=== PATIENT | male | born 1995 | race Caucasian/White ===

== ENCOUNTER 2019-03-14 20:20 | Emergency (ER) | payer BC ==
[2019-03-14] MEDS ORDERED: Lidocaine 1% 50 ML MDV INJECT ONE (21:23)
[2019-03-14] MEDS ORDERED: Diphtheria,Pertussis(Acell),Tetanus Vaccine 0.5 ML Syringe IM ONE (21:24)
--- NOTE | 2019-03-14 21:48 | EDM.PDOC ---
ED HPI GENERAL MEDICAL PROBLEM - General Chief Complaint: Laceration Stated Complaint: LACERATION TO SIDE Time Seen by Provider: 03/14/19 21:33 Source of Information: Reports: Patient History Limitations: Reports: No Limitations - History of Present Illness INITIAL COMMENTS - FREE TEXT/NARRATIVE: 23-year-old male presents for evaluation and treatment of a laceration to the left flank. Injury occurred prior to arrival in the ER. 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 Bleeding controlled upon arrival to the ER. Unsure of last tetanus. Left Abdomen Pain Score (Numeric/FACES): 2 - Related Data Allergies Allergy/AdvReac Type Severity Reaction Status Date / Time No Known Allergies Allergy Verified 03/14/19 20:30 Home Meds: Home Meds . [No Known Home Meds] 03/14/19 [History] Past Medical History Cardiovascular History: Reports: Other (See Below) Other Cardiovascular History: irregular heart beat - Past Surgical History HEENT Surgical History: Reports: Adenoidectomy, Tonsillectomy Social & Family History - Tobacco Use Smoking Status *Q: Current Every Day Smoker Years of Tobacco use: 12 Packs/Tins Daily: 1.5 - Caffeine Use Caffeine Use: Reports: Coffee - Recreational Drug Use Recreational Drug Use: No ED ROS GENERAL - Review of Systems Review Of Systems: ROS reveals no pertinent complaints other than HPI. ED EXAM, SKIN/RASH Exam: See Below Exam Limited By: No Limitations General Appearance: Alert, WD/WN, No Apparent Distress Throat/Mouth: Normal Inspection Respiratory/Chest: No Respiratory Distress Neurological: Alert, Oriented, Normal Cognition Psychiatric: Normal Affect, Normal Mood Skin: Warm, Dry, Normal Color, Wound/Incision (5cm x 1cm open wound to the left flank) Location, Skin: Abdomen (left lateral) Characteristics: Linear ED SKIN PROCEDURES - Laceration/Wound Repair Left Lateral Abdomen Lac/Wound length In cm: 5 Appearance: Subcutaneous, Linear, Clean Distal NVT: Neuro & Vascular Intact, No Tendon Injury Anesthetic Type: Local Local Anesthesia - Lidocaine (Xylocaine): 1% Plain Local Anesthetic Volume: 3cc Skin Prep: Saline, Sterile Drape Exploration/Debridement/Repair: Wound Explored Closed with: Sutures Suture Size: 4-0 # of Sutures: 8 Suture Type: Nylon, Interrupted, Simple Sterile Dressing Applied: Nurse Tetanus Status Addressed: Yes Complications: No Course - Vital Signs Last Recorded V/S: Last Vital Signs Temp 98.5 F 03/14/19 20:28 Pulse 93 03/14/19 20:28 Resp 16 03/14/19 20:28 BP 127/87 03/14/19 20:28 Pulse Ox 98 03/14/19 20:28 - Orders/Labs/Meds Orders: Active Orders 24 hr Category Date Time Status Vaccines to be Administered [RC] PER UNIT ROUTINE Care 03/14/19 21:24 Ordered Meds: Medications Discontinued Medications Generic Name Dose Route Start Last Admin Trade Name Freyoni PRN Reason Stop Dose Admin Diphtheria/Tetanus/Acell Pertussis 0.5 ml 03/14/19 21:24 03/14/19 21:36 Adacel IM 03/14/19 21:25 0.5 ml .ONCE ONE Administration Lidocaine HCl 50 ml 03/14/19 21:23 03/14/19 21:36 Xylocaine 1% INJECT 03/14/19 21:24 50 ml ONETIME ONE Administration - Re-Assessments/Exams Free Text/Narrative Re-Assessment/Exam: 03/14/19 22:40 8 sutures placed to the left side. Patient tolerated well. No complications. His tetanus was updated. Discharge instructions as documented. Departure - Departure Time of Disposition: 22:40 Disposition: Home, Self-Care 01 Condition: Good Clinical Impression: Laceration - Discharge Information *PRESCRIPTION DRUG MONITORING PROGRAM REVIEWED*: No *COPY OF PRESCRIPTION DRUG MONITORING REPORT IN PATIENT MISHA: No Referrals: PCP,None [Primary Care Provider] - Rupinder Casillas PA-C [[employer] [facility]] - Forms: ED Department Discharge Additional Instructions: wash the wound with gentle soap and water twice a day.e may plan antibacterial such as Neosporin or bacitracin to the wound. Recommend keeping the wound covered. He may leave open to air in situations where there is not clothing rubbing on it or when may not become dirty. Recommended no heavy lifting over 25 pounds next week. Recommend no strenuous activity that would cause increased movement and may cause the sutures to break . Take ckoe-pty-waostas Tylenol or Motrin as needed for pain. Have the sutures removed in 10 days. the [facility] located on the east side of the [facility] is open 8 AM to 5 PM Monday through Monday and will remove the sutures for free. Call [phone] to schedule with a provider there. There are open 8 AM to 5 PM Monday to Monday. monitor the wound for signs of infection such as increased swelling, pus or redness. Presents to clinic or the ER should these develop. Please return to the ER for symptoms change or worsen. - My Orders Last 24 Hours: My Active Orders 03/14/19 21:24 Vaccines to be Administered [RC] PER UNIT ROUTINE - Assessment/Plan Last 24 Hours: My Active Orders 03/14/19 21:24 Vaccines to be Administered [RC] PER UNIT ROUTINE
== END 2019-03-14 22:50 | disposition home or self-care (01) ==
LOC: JD.ED 20:20
DX: S31.119A Laceration without foreign body of abdominal wall, unspecified quadrant without penetration into peritoneal cavity, initial encounter (principal); F17.210 Nicotine dependence, cigarettes, uncomplicated; Z23 Encounter for immunization; Z98.890 Other specified postprocedural states; W26.8XXA Contact with other sharp object(s), not elsewhere classified, initial encounter
CPT/HCPCS: 12002; 90471; 90700; 99282; J2001

== ENCOUNTER 2021-02-11 07:53 | Emergency (ER) | payer SELFPAY ==
--- NOTE | 2021-02-11 08:10 | EDM.PDOC ---
ED HPI GENERAL MEDICAL PROBLEM - General Chief Complaint: Upper Extremity Injury/Pain Stated Complaint: RT WRIST SWOLLEN Time Seen by Provider: 02/11/21 08:09 Source of Information: Reports: Patient History Limitations: Reports: No Limitations - History of Present Illness INITIAL COMMENTS - FREE TEXT/NARRATIVE: 25-year-old male attends the ED this morning complaining of pain in his right thumb and dorsal wrist. He was tearing off a roof 2 days ago but not did not feel the work was necessarily more than what he is used to. He denies falling or injuring the wrist. Exam it hurts to move his thumb in certain directions and the wrist in abduction abduction and flexion. No previous fracture to the wrist. No other complaints. 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 (Motrin yesterday.) Right Wrist Pain Score (Numeric/FACES): 5 - Related Data Allergies Allergy/AdvReac Type Severity Reaction Status Date / Time No Known Allergies Allergy Verified 02/11/21 08:09 Home Meds: Home Meds Diclofenac Sodium [Voltaren] 75 mg PO BIDMEALS #20 tab.cr 02/11/21 [Rx] Past Medical History Cardiovascular History: Reports: Other (See Below) Other Cardiovascular History: irregular heart beat - Past Surgical History HEENT Surgical History: Reports: Adenoidectomy, Tonsillectomy Social & Family History - Caffeine Use Caffeine Use: Reports: Coffee - Living Situation & Occupation Living situation: Reports: Single Occupation: Employed Review of Systems - Review of Systems Review Of Systems: See Below Constitutional: Reports: No Symptoms Eyes: Reports: No Symptoms Ears: Reports: No Symptoms Nose: Reports: No Symptoms Mouth/Throat: Reports: No Symptoms Respiratory: Reports: No Symptoms Cardiovascular: Reports: No Symptoms GI/Abdominal: Reports: No Symptoms Genitourinary: Reports: No Symptoms Musculoskeletal: Reports: Back Pain Skin: Reports: No Symptoms Neurological: Reports: No Symptoms Psychiatric: Reports: No Symptoms ED EXAM, GENERAL - Physical Exam Exam: See Below Exam Limited By: No Limitations General Appearance: Alert, WD/WN, No Apparent Distress, Other (Vital signs show temperature of 36.1 degrees. Heart rate 57 and sinus. Respiratory to 16 BP 139/89 with pulse oximetry of 97% room air.) Eye Exam: Bilateral Eye: Normal Inspection, PERRL Extremities: Other (Examination was essentially limited to his right wrist. He has full range of motion although painful abduction abduction and flexion. Pain follows the distribution of the extensor tendons of the thumb compared with de Quervain's tenosynovitis. He is already wearing a splint that will minimize mov) Neurological: Alert, Oriented, CN II-XII Intact, Normal Cognition Psychiatric: Normal Affect, Normal Mood Skin Exam: Warm, Dry, Intact, Normal Color Course - Vital Signs Last Recorded V/S: Last Vital Signs Temp 36.6 C 02/11/21 08:33 Pulse 60 02/11/21 08:33 Resp 16 02/11/21 08:33 BP 127/78 02/11/21 08:33 Pulse Ox 98 02/11/21 08:33 - Radiology Interpretation Free Text/Narrative:: 25-year-old male presents to the ED with a Muller veins tenosynovitis of the right wrist. He is allergic to steroids presumably prednisone which he took and once in the past for hives. He has developed significant chest pain from them. He is already wearing a volar splint that minimizes movement of his thumb. He is advised to continue wearing this until better. I placed him on Voltaren 75 mg twice daily for the next 10 days. If this fails to improve his pain he may require steroid injection by a small dose of Depo-Medrol which he is unlikely to react to. Advised follow-up with Dr. Navarrete in 12 to 14 days if needed. Departure - Departure Time of Disposition: 08:19 Disposition: Home, Self-Care 01 Condition: Fair Clinical Impression: De Quervain's disease (tenosynovitis) - Discharge Information *PRESCRIPTION DRUG MONITORING PROGRAM REVIEWED*: Not Applicable *COPY OF PRESCRIPTION DRUG MONITORING REPORT IN PATIENT MISHA: Not Applicable Prescriptions: Diclofenac Sodium [Voltaren] 75 mg PO BIDMEALS #20 tab.cr Instructions: De Quervain's Tenosynovitis Referrals: PCP,None [Primary Care Provider] - Forms: ED Department Discharge Additional Instructions: Evaluation of right wrist pain carried out through the ED today feels substantial inflammation in the distribution of the tendons that move your thumb and wrist in all directions. No evidence of fracture identified. You have something called de Quervain's tenosynovitis involving the tendon sheath surrounding the tendons that help move the thumb primarily . The tendons overlying the right or thumb side of your dorsal wrist. Suggest wearing the splint that you have in place already. Use Voltaren 75 mg twice daily for the next 10 days to relieve pain and inflammation. If this is not markedly improved in 10 to 12 days time he may benefit from an injection in this area. Advise follow-up with --orthopedic surgeon who works on second floor on the side of the hospital. You could phone and make an appointment at [phone] to arrange an appointment. Sepsis Event Note (ED) - Evaluation Sepsis Screening Result: No Definite Risk - Focused Exam Vital Signs: Vital Signs Temp Pulse Resp BP Pulse Ox 02/11/21 08:33 36.6 C 60 16 127/78 98 02/11/21 08:05 36.1 C 57 L 16 139/89 97
== END 2021-02-11 08:35 | disposition home or self-care (01) ==
LOC: JD.ED 07:53
DX: M65.4 Radial styloid tenosynovitis [de Quervain] (principal)
CPT/HCPCS: 99283

== ENCOUNTER 2022-02-20 14:14 | Emergency (ER) | payer SELFPAY ==
[2022-02-20] MEDS ORDERED: Sodium Chloride 0.9% 10 ML Syringe FLUSH PRN (15:16)
[2022-02-20] MEDS ORDERED: LORazepam 1 MG Tab PO ONE (15:20)
== END 2022-02-20 17:30 | disposition home or self-care (01) ==
LOC: JD.ED 14:14
DX: R07.89 Other chest pain (principal); F41.9 Anxiety disorder, unspecified; Z87.891 Personal history of nicotine dependence
CPT/HCPCS: 36415; 71046; 80053; 84484; 85025; 85379; 93005; 99285; A9270; J3490

== ENCOUNTER 2022-04-16 21:44 | Emergency (ER) | payer SELFPAY ==
[2022-04-17] MEDS ORDERED: Ketorolac 15 MG/ML SDV IM ONE (00:41)
== END 2022-04-17 02:35 | disposition home or self-care (01) ==
LOC: JD.ED 21:44
DX: S02.2XXA Fracture of nasal bones, initial encounter for closed fracture (principal); R68.84 Jaw pain; Z88.0 Allergy status to penicillin; Z88.5 Allergy status to narcotic agent; Z87.891 Personal history of nicotine dependence; Y04.0XXA Assault by unarmed brawl or fight, initial encounter
CPT/HCPCS: 70450; 70486; 71046; 96372; 99284; J1885; 99283

== ENCOUNTER 2025-04-02 07:43 | Emergency (ER) | payer SELFPAY ==
[2025-04-02] MEDS ORDERED: Sodium Chloride 0.9% 10 ML Syringe FLUSH PRN (07:49)
[2025-04-02 08:29] LABS: BARBITURATE SCREEN,URINE NEGATIVE (CUTOFF=200); BENZODIAZEPINES SCREEN,URINE NEGATIVE (CUTOFF=150); BUPRENORPHINE SCREEN,URINE NEGATIVE (CUTOFF=10); METHADONE SCREEN, URINE NEGATIVE (CUT0FF=200); METHAMPHETAMINES SCREEN, URINE NEGATIVE (CUTOFF=500); OXYCODONE SCREEN,URINE NEGATIVE (CUT0FF=100); THC SCREEN,URINE 20 NG/ML PRESUMPTIVE POSITIVE (CUTOFF=50)
[2025-04-02 08:31] LABS: AMPHETAMINES SCREEN, URINE NEGATIVE (CUTOFF=500)
== END 2025-04-02 08:12 | disposition left against medical advice (07) ==
LOC: JD.ED 07:43
DX: R07.89 Other chest pain (principal); Z79.899 Other long term (current) drug therapy; Z88.0 Allergy status to penicillin; Z88.8 Allergy status to other drugs, medicaments and biological substances
CPT/HCPCS: 71045; 71045-26; 80306; 93005; 93010; 99283; 99285

== ENCOUNTER 2025-04-02 08:20 | Emergency (ER) | payer SELFPAY ==
[2025-04-02 08:52] LABS: BASOPHILS PERCENT AUTO 0.2 % (0.0-1.0); EOSINOPHILS PERCENT AUTO 0.2 % (0.0-6.0); HEMATOCRIT 46.9 % (42.0-52.0); IMMATURE GRAN ABSOLUTE AUTO 0.02 K/mm3 (0.00-0.05); IMMATURE GRAN PERCENT AUTO 0.2 % (0.0-0.4); LYMPHOCYTES ABSOLUTE AUTO 1.6 K/mm3 (1.0-4.8); LYMPHOCYTES PERCENT AUTO 18.5 % (24.0-44.0); MEAN CORPUSCULAR HEMOGLOBIN 27.2 pg (28.0-32.0); MEAN CORPUSCULAR HGB CONC 34.1 g/dl (32.0-36.0); MEAN CORPUSCULAR VOLUME 79.6 fl (83.0-99.0); MEAN PLATELET VOLUME 9.3 fl (9.4-12.4); MONOCYTES ABSOLUTE AUTO 0.8 K/mm3 (0.0-0.8); MONOCYTES PERCENT AUTO 9.4 % (0.0-8.0); NEUTROPHILS ABSOLUTE AUTO 6.1 K/mm3 (1.8-7.7); NEUTROPHILS PERCENT AUTO 71.5 % (41.0-71.0); PLATELET COUNT,PLT 221 K/mm3 (150-400); RED BLOOD CELL COUNT 5.89 M/mm3 (4.52-5.90); WHITE BLOOD CELL COUNT,WBC 8.58 K/mm3 (3.9-11.3)
[2025-04-02 09:16] LABS: A/G RATIO 1.4 (1-2); ALBUMIN 4.3 g/dl (3.4-5.0); ANION GAP 15.6 (5-15); BILIRUBIN TOTAL 1.2 mg/dL (0.2-1.0); BUN/CREATININE RATIO 8.3 (14-18); CALCIUM 9.1 mg/dL (8.5-10.1); CREATININE 1.2 mg/dL (0.7-1.3); EST CRCL DRUG DOSING (CG) 88.31 mL/min; POTASSIUM,K 3.6 mEq/L (3.5-5.1); PROTEIN TOTAL,TP 7.4 g/dl (6.4-8.2)
[2025-04-02] MEDS: Potassium Chloride 20 MEQ Tab.ER PO ONE (09:58)
== END 2025-04-02 10:10 | disposition home or self-care (01) ==
LOC: JD.ED 08:20
DX: R07.89 Other chest pain (principal); F17.200 Nicotine dependence, unspecified, uncomplicated; Z88.0 Allergy status to penicillin; Z88.8 Allergy status to other drugs, medicaments and biological substances; Z79.899 Other long term (current) drug therapy
CPT/HCPCS: 36415; 80053; 84484; 85025; 99283; 99285; A9270-GY

== ENCOUNTER 2025-04-03 22:12 | Emergency (ER) | payer SELFPAY | END 2025-04-03 23:00 | disposition left against medical advice (07) | LOC: JD.ED 22:12 | DX: Z53.21 Procedure and treatment not carried out due to patient leaving prior to being seen by health care provider (principal) ==

== ENCOUNTER 2025-04-25 12:04 | Emergency (ER) | payer OTHER ==
[2025-04-25 12:39] LABS: BASOPHILS ABSOLUTE AUTO 0.0 K/mm3 (0.0-0.2); BASOPHILS PERCENT AUTO 0.3 % (0.0-1.0); EOSINOPHILS ABSOLUTE AUTO 0.0 K/mm3 (0.0-0.4); EOSINOPHILS PERCENT AUTO 0.6 % (0.0-6.0); IMMATURE GRAN ABSOLUTE AUTO 0.02 K/mm3 (0.00-0.05); IMMATURE GRAN PERCENT AUTO 0.3 % (0.0-0.4); LYMPHOCYTES ABSOLUTE AUTO 1.4 K/mm3 (1.0-4.8); LYMPHOCYTES PERCENT AUTO 23.0 % (24.0-44.0); MEAN PLATELET VOLUME 9.8 fl (9.4-12.4); MONOCYTES ABSOLUTE AUTO 0.4 K/mm3 (0.0-0.8); MONOCYTES PERCENT AUTO 6.6 % (0.0-8.0); NEUTROPHILS ABSOLUTE AUTO 4.3 K/mm3 (1.8-7.7); NEUTROPHILS PERCENT AUTO 69.2 % (41.0-71.0); NRBC ABSOLUTE 0.00 (0.00-0.02); NRBC PERCENT 0.0 % (0.0-0.2); PLATELET COUNT,PLT 208 K/mm3 (150-400); RED BLOOD CELL COUNT 5.53 M/mm3 (4.52-5.90); WHITE BLOOD CELL COUNT,WBC 6.18 K/mm3 (3.9-11.3)
[2025-04-25 13:06] LABS: A/G RATIO 1.3 (1-2); ALANINE AMINOTRANSFERASE,ALT 34.0 U/L (16-63); ASPARTATE AMNIOTRANSFERASE,AST 29.0 U/L (15-37); BILIRUBIN TOTAL 0.9 mg/dL (0.2-1.0); BLOOD UREA NITROGEN,BUN 15.0 mg/dL (7-18); CARBON DIOXIDE,CO2 26.0 mEq/L (21-32); CHLORIDE,CL 108.0 mEq/L (98-107); CREATINE KINASE,CK 170.0 U/L (39-308); CREATININE 0.9 mg/dL (0.7-1.3); EST CRCL DRUG DOSING (CG) 107.32 mL/min; ESTIMATED GFR 117.0 mL/min (>60); GLUCOSE RANDOM 109.0 mg/dL (70-99); PROTEIN TOTAL,TP 6.3 g/dl (6.4-8.2); SODIUM,NA 140.0 mEq/L (136-145); TROPONIN I HIGH SENSITIVITY 7.0 pg/mL (<=76)
[2025-04-25 13:22] LABS: POTASSIUM,K 4.2 mEq/L (3.5-5.1)
== END 2025-04-25 14:00 | disposition home or self-care (01) ==
LOC: JD.ED 12:04
DX: R07.89 Other chest pain (principal); M62.838 Other muscle spasm; F43.9 Reaction to severe stress, unspecified; Z88.0 Allergy status to penicillin; Z88.8 Allergy status to other drugs, medicaments and biological substances
CPT/HCPCS: 36415; 71045; 80053; 82550; 83690; 83735; 84484; 85025; 93005; 96360; 99285; J7030

== ENCOUNTER 2025-05-11 08:56 | Emergency (ER) | payer OTHER ==
[2025-05-11] MEDS: Ondansetron 4 MG/2 ML SDV IVPUSH ONE (09:30)
[2025-05-11 09:33] LABS: BASOPHILS ABSOLUTE AUTO 0.0 K/mm3 (0.0-0.2); BASOPHILS PERCENT AUTO 0.7 % (0.0-1.0); EOSINOPHILS ABSOLUTE AUTO 0.1 K/mm3 (0.0-0.4); EOSINOPHILS PERCENT AUTO 1.8 % (0.0-6.0); IMMATURE GRAN ABSOLUTE AUTO 0.02 K/mm3 (0.00-0.05); IMMATURE GRAN PERCENT AUTO 0.4 % (0.0-0.4); LYMPHOCYTES ABSOLUTE AUTO 1.7 K/mm3 (1.0-4.8); LYMPHOCYTES PERCENT AUTO 30.8 % (24.0-44.0); MEAN PLATELET VOLUME 9.3 fl (9.4-12.4); MONOCYTES ABSOLUTE AUTO 0.4 K/mm3 (0.0-0.8); MONOCYTES PERCENT AUTO 7.8 % (0.0-8.0); NEUTROPHILS ABSOLUTE AUTO 3.3 K/mm3 (1.8-7.7); NEUTROPHILS PERCENT AUTO 58.5 % (41.0-71.0); NRBC ABSOLUTE 0.00 (0.00-0.02); NRBC PERCENT 0.0 % (0.0-0.2); PLATELET COUNT,PLT 170 K/mm3 (150-400); RED BLOOD CELL COUNT 5.73 M/mm3 (4.52-5.90); WHITE BLOOD CELL COUNT,WBC 5.62 K/mm3 (3.9-11.3)
[2025-05-11 09:56] LABS: A/G RATIO 1.4 (1-2); ALANINE AMINOTRANSFERASE,ALT 43.0 U/L (16-63); ASPARTATE AMNIOTRANSFERASE,AST 19.0 U/L (15-37); BILIRUBIN TOTAL 0.9 mg/dL (0.2-1.0); BLOOD UREA NITROGEN,BUN 12.0 mg/dL (7-18); CARBON DIOXIDE,CO2 32.0 mEq/L (21-32); CHLORIDE,CL 104.0 mEq/L (98-107); CREATINE KINASE,CK 71.0 U/L (39-308); CREATININE 0.9 mg/dL (0.7-1.3); EST CRCL DRUG DOSING (CG) 106.06 mL/min; ESTIMATED GFR 117.0 mL/min (>60); GLUCOSE RANDOM 80.0 mg/dL (70-99); POTASSIUM,K 4.7 mEq/L (3.5-5.1); PROTEIN TOTAL,TP 6.6 g/dl (6.4-8.2); SODIUM,NA 142.0 mEq/L (136-145); TROPONIN I HIGH SENSITIVITY 5.0 pg/mL (<=76)
== END 2025-05-11 10:31 | disposition home or self-care (01) ==
LOC: JD.ED 08:56
DX: R07.89 Other chest pain (principal); T46.3X5A Adverse effect of coronary vasodilators, initial encounter; R51.9 Headache, unspecified; F17.210 Nicotine dependence, cigarettes, uncomplicated; Z88.0 Allergy status to penicillin; Z88.5 Allergy status to narcotic agent; Z88.8 Allergy status to other drugs, medicaments and biological substances
CPT/HCPCS: 36415; 70450; 80053; 82550; 83735; 84484; 85025; 93005; 96361; 96374; 99285; A9270; J2405; J7030; 93010; 99283